=== PATIENT | female | born 2000 | race Hispanic/Latino ===

== ENCOUNTER 2020-08-27 12:20 | Emergency (ER) | payer MEDICAID ==
[2020-08-27] MEDS ORDERED: ACETAMINOPHEN-CODEINE 300/30MG TAB ONE (12:54)
[2020-08-27] MEDS ORDERED: CEPHALEXIN 500 MG CAPSULE ONE (12:54)
[2020-08-27] MEDS ORDERED: TETANUS/DIPHTHERIA TOXOID [ADULT] 0.5 ML VIAL IM ONE (12:55)
== END 2020-08-27 13:19 | disposition home or self-care (01) ==
LOC: EDH 12:20
DX: S81.812A Laceration without foreign body, left lower leg, initial encounter (principal); S80.12XA Contusion of left lower leg, initial encounter; W55.12XA Struck by horse, initial encounter; Y93.89 Activity, other specified; Y92.89 Other specified places as the place of occurrence of the external cause; Y99.2 Volunteer activity
CPT/HCPCS: 73590; 90471; 90714

== ENCOUNTER 2020-09-25 08:42 | Emergency (ER) | payer MEDICAID ==
[~2020-09-25] VITALS: Ht 152.4 cm; Wt 54.4 kg
[2020-09-25 09:08] VITALS: BP 128/73
[2020-09-25] MEDS ORDERED: ONDANSETRON 4MG INJ IVP SCH (09:30)
[2020-09-25] MEDS ORDERED: 0.9%NACL 1000ML 1,000 ML IV SCH (09:30)
[2020-09-25] MEDS ORDERED: ONDANSETRON 4MG INJ ONE (09:34)
[2020-09-25 09:48] VITALS: BP 101/57
[2020-09-25 10:16] LABS: HEMATOCRIT 38.4 % (36-48); MEAN CORPUSCULAR HEMOGLOBIN 29.6 pg (27.0-33.0); MEAN CORPUSCULAR HGB CONC 33.3 g/dL (32.0-36.0); MEAN CORPUSCULAR VOLUME 88.7 fL (80-100); PLATELET COUNT (AUTO) 291 K/uL (130-400); RED BLOOD CELL COUNT(AUTO) 4.33 MIL/uL (4.00-5.50); RED CELL DISTRIBUTION WIDTH 12.2 % (11.0-15.5)
[2020-09-25 10:26] LABS: CREATININE 0.7 mg/dL (0.5-1.5); POTASSIUM 3.7 mmol/L (3.5-5.1)
[2020-09-25 10:31] LABS: ALBUMIN 4.2 g/dL (3.5-5.0); BILIRUBIN,TOTAL 0.7 mg/dL (0.2-1.0); TOTAL PROTEIN, SERUM 8.3 g/dL (6.0-8.3)
[2020-09-25 10:59] LABS: BAND NEUTROPHILS % (MANUAL) 3 % (0-2); LYMPHOCYTES % (MANUAL) 3 % (22-44); MAN.DIFF COMMENT-IMPRESSION MANUAL DIFFERENTIAL; MONOCYTES % (MANUAL) 2 % (2-9); PLATELET MORPHOLOGY COMMENT ADEQUATE; SEGMENTED NEUTROPHILS % 92 % (40-70)
[2020-09-25 11:03] VITALS: BP 106/53
[2020-09-25 11:09] LABS: APPEARANCE,URINE CLOUDY (CLEAR); BILIRUBIN,URINE NEGATIVE (NEGATIVE); COLOR,URINE YELLOW (YELLOW); GLUCOSE, URINE (UA) NEGATIVE (NEGATIVE); KETONES,URINE 40 mg/dL (NEGATIVE); LEUKOCYTE ESTERASE ,URINE NEGATIVE (NEGATIVE); NITRATE,URINE NEGATIVE (NEGATIVE); OCCULT BLOOD,URINE LARGE (NEGATIVE); PROTEIN,URINE TRACE mg/dL (NEGATIVE); UROBILINOGEN,URINE 0.2 mg/dL (0.2-1.0)
[2020-09-25 11:20] LABS: BACTERIA,URINE Moderate /HPF (None Seen)
[2020-09-25 11:21] LABS: AMORPHOUS SEDIMENT,UR Moderate /LPF (None Seen); WBC,URINE None Seen /HPF (0-1)
[2020-09-25] MEDS ORDERED: ONDA4TAB4 PO (11:37)
== END 2020-09-25 11:47 | disposition home or self-care (01) ==
LOC: EDH 08:42
DX: K52.9 Noninfective gastroenteritis and colitis, unspecified (principal); E86.0 Dehydration; Z79.899 Other long term (current) drug therapy
CPT/HCPCS: 36415; 80053; 81001; 85025; 87088; 96361; 96374; 99283; J2405; J7030